=== PATIENT | female | born 1975 | race Caucasian/White ===

== ENCOUNTER 2016-10-18 06:22 | Emergency (ER) | payer OTHER ==
[~2016-10-18] VITALS: Ht 165.1 cm; Wt 99.8 kg
[~2016-10-18 06:22] MED LIST: DAPA10TA PO; INSU100V SQ; INSU300I SQ; LIRA0.6P SQ; LISI40TA PO; METF-478 PO; MULT-974 PO; PANT40TA2 PO; PANT40TA3 PO; SUCR1ORA5 PO
--- NOTE | 2016-10-18 07:16 | Diagnostic Imaging Report ---
INDICATION: Cough and congestion. TECHNIQUE: Single view chest 7:07 AM. CORRELATION STUDY: 09/21/2006 FINDINGS: The heart size, mediastinal configuration and pulmonary vascularity are within normal limits. The lungs are clear with no consolidating infiltrate. There is no significant effusion or pneumothorax. There is overall somewhat suboptimal depth of inspiration. IMPRESSION: 1. No radiographic evidence for acute abnormality of the chest. Dictated by: Dictated on workstation # [id number]
[2016-10-18 07:24] LABS: BASOPHILS # (AUTO) 0.1 10^3/uL (0.0-0.1); BASOPHILS % (AUTO) 1 % (0-10); EOSINOPHILS # (AUTO) 0.1 10^3/uL (0.0-0.3); EOSINOPHILS % (AUTO) 2 % (0-10); LYMPHOCYTES # (AUTO) 2.6 X 10^3 (1.0-4.0); LYMPHOCYTES % (AUTO) 44 % (12-44); MEAN CORPUSCULAR HEMOGLOBIN 31 PG (25-34); MEAN CORPUSCULAR HGB CONC 34 G/DL (32-36); MEAN CORPUSCULAR VOLUME 89 FL (80-99); MEAN PLATELET VOLUME 9.9 FL (7.4-10.4); MONOCYTES # (AUTO) 0.4 X 10^3 (0.0-1.0); MONOCYTES % (AUTO) 8 % (0-12); NEUTROPHILS # (AUTO) 2.7 X 10^3 (1.8-7.8); NEUTROPHILS % (AUTO) 46 % (42-75); PLATELET COUNT 253 10^3/uL (130-400); RED BLOOD COUNT 4.04 10^6/uL (4.35-5.85); RED CELL DISTRIBUTION WIDTH 12.7 % (10.0-14.5); WHITE BLOOD COUNT 5.9 10^3/uL (4.3-11.0)
--- NOTE | 2016-10-18 07:42 | ED Cough/URI ---
General Chief Complaint: Cough/Cold/Flu Symptoms Stated Complaint: UPPER RESPIRATORY INFECTION Nursing Triage Note: Pt. advises she has had an upper respiratory infection for approx. 1 weeks. She states she was seen at urgent care on wednesday and has since completed a z-pack without improvement. Source: patient Exam Limitations: no limitations History of Present Illness Time seen by provider: 07:39 Initial Comments The patient is a 40-year-old white female insulin requiring diabetic who reports with a complaint of a harsh barking cough for about one week now. She was seen in an intermediate care facility and given a Z-Andrew. She took all of this and has also used Flonase and Mucinex without results. She reports her worst time is at bedtime when she seems to increase her postnasal drainage and therefore coughing. She was unable to sleep last night because of this. 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 School ended on Wednesday. Timing/Duration: constant, week Severity/Quality: moderate, dry cough Allergies and Home Medications Allergies Coded Allergies: No Known Drug Allergies (Unverified , 12/29/15) Home Medications Dapagliflozin Propanediol 10 Mg Tablet, 10 MG PO DAILY, (Reported) Insulin Glargine,Hum.rec.anlog 300 Unit/1 Ml Insuln.pen, 40-50 UNIT SQ HS, ( Reported) Insulin Lispro 100 Unit/1 Ml Vial, 15 UNIT SQ AC, (Reported) Liraglutide 0.6 Mg/0.1 Ml Pen.injctr, 1.2 UNITS SQ DAILY, (Reported) Lisinopril 40 Mg Tablet, 40 MG PO DAILY, (Reported) Metformin HCl 500 Mg Tab.er.24, 500 MG PO, (Reported) Multivitamin 1 Each Tablet, 1 EACH PO, (Reported) Pantoprazole Sodium 40 Mg Tablet.dr, 40 MG PO PRN, (Reported) Pantoprazole Sodium 40 Mg Tablet.dr, 40 MG PO DAILY, #30 Prescribed by: WILFREDO ANDERSON on 12/29/15 1139 Sucralfate 1 Gm/10 Ml Oral.susp, 1 GM PO ACHS, #40 Prescribed by: WILFREDO ANDERSON on 12/29/15 1139 Constitutional: see HPI EENTM: hoarseness, nose congestion Respiratory: cough Cardiovascular: no symptoms reported Gastrointestinal: no symptoms reported Genitourinary: no symptoms reported Musculoskeletal: no symptoms reported Skin: no symptoms reported Psychiatric/Neurological: No Symptoms Reported Past Cqgloxx-Vaatwv-Wipwmr Hx Patient Social History Alcohol Use: Denies Use Recreational Drug Use: No Smoking Status: Never a Smoker Recent Foreign Travel: No Contact w/Someone Who Travel: No Recent Infectious Disease Expo: No Recent Hopitalizations: No Seasonal Allergies Seasonal Allergies: No Surgeries Surgeries: Gallbladder Respiratory Respiratory Disorders: Asthma Cardiovascular Cardiac Disorders: Hypertension Endocrine Endocrine Disorders: Diabetes, Insulin dep Physical Exam Vital Signs Vital Sign - Last 12Hours 10/18/16 06:35 Temp 97.3 Pulse 90 Resp 15 B/P (MAP) 124/71 Pulse Ox 98 O2 Delivery Room Air Capillary Refill : Less Than 3 Seconds General Appearance: other (she appears tired and is hoarse) Eyes: Bilateral Eye Normal Inspection HEENT: TMs normal, pharynx normal Neck: non-tender, full range of motion, supple, normal inspection, carotid bruit Respiratory: chest non-tender, lungs clear, normal breath sounds, no respiratory distress, no accessory muscle use, respiratory distress Cardiovascular: normal peripheral pulses, regular rate, rhythm, no edema, no gallop, no JVD, no murmur Gastrointestinal: normal bowel sounds, non tender, soft, no organomegaly, no pulsatile mass Extremities: normal range of motion, non-tender, normal inspection, no pedal edema, no calf tenderness, normal capillary refill, pelvis stable Skin: normal color, warm/dry, cyanosis, cool, diaphoresis, damp Lymphatic: no adenopathy Progress/Results/Core Measures Results/Orders Lab Results Laboratory Tests Test 10/18/16 07:15 Range/Units White Blood Count 5.9 4.3-11.0 10^3/uL Red Blood Count 4.04 L 4.35-5.85 10^6/uL Hemoglobin 12.4 11.5-16.0 G/DL Hematocrit 36 35-52 % Mean Corpuscular Volume 89 80-99 FL Mean Corpuscular Hemoglobin 31 25-34 PG Mean Corpuscular Hemoglobin Concent 34 32-36 G/DL Red Cell Distribution Width 12.7 10.0-14.5 % Platelet Count 253 130-400 10^3/uL Mean Platelet Volume 9.9 7.4-10.4 FL Neutrophils (%) (Auto) 46 42-75 % Lymphocytes (%) (Auto) 44 12-44 % Monocytes (%) (Auto) 8 0-12 % Eosinophils (%) (Auto) 2 0-10 % Basophils (%) (Auto) 1 0-10 % Neutrophils # (Auto) 2.7 1.8-7.8 X 10^3 Lymphocytes # (Auto) 2.6 1.0-4.0 X 10^3 Monocytes # (Auto) 0.4 0.0-1.0 X 10^3 Eosinophils # (Auto) 0.1 0.0-0.3 10^3/uL Basophils # (Auto) 0.1 0.0-0.1 10^3/uL Sodium Level 138 135-145 MMOL/L Potassium Level 4.1 3.6-5.0 MMOL/L Chloride Level 105 98-107 MMOL/L Carbon Dioxide Level 22 21-32 MMOL/L Anion Gap 11 5-14 MMOL/L Blood Urea Nitrogen 13 7-18 MG/DL Creatinine 0.75 0.60-1.30 MG/DL Estimat Glomerular Filtration Rate > 60 BUN/Creatinine Ratio 17 Glucose Level 228 H 70-105 MG/DL Calcium Level 9.0 8.5-10.1 MG/DL Total Bilirubin 0.7 0.1-1.0 MG/DL Aspartate Amino Transf (AST/SGOT) 13 5-34 U/L Alanine Aminotransferase (ALT/SGPT) 16 0-55 U/L Alkaline Phosphatase 125 40-136 U/L Total Protein 7.4 6.4-8.2 G/DL Albumin 4.2 3.2-4.5 G/DL My Orders Orders - PARESH KAY MD Cbc With Automated Diff (10/18/16 06:51) Comprehensive Metabolic Panel (10/18/16 06:51) Chest 1 View, Ap/Pa Only (10/18/16 07:01) Vital Signs/I&O Vital Sign - Last 12Hours 10/18/16 10/18/16 06:35 06:35 Temp 97.3 Pulse 90 Resp 15 B/P (MAP) 124/71 Pulse Ox 98 O2 Delivery Room Air Room Air Blood Pressure Mean: 88 Departure Communication Progress Notes Workup including chest x-ray and CBC and chem panel were normal with the exception of a somewhat elevated blood sugar. Impression Impression: Primary Impression: viral upper respiratory infection Disposition: 01 HOME, SELF-CARE Condition: Stable/Unchanged Departure-Patient Inst. Decision time for Depature: :56 Referrals: NO,LOCAL PHYSICIAN (PCP) Primary Care Physician Patient Instructions: Cough, Adult (DC) Add. Discharge Instructions: All discharge instructions reviewed with patient and/or family. Voiced understanding. Continue your present measures. Tylenol 3 has been provided for cough suppression Scripts Codeine Sulfate (Codeine Sulfate) 30 Mg Tab 30 MG PO every 4 hours Y for cough, #25 TAB Prov: PARESH KAY MD 10/18/16 PARESH KAY MD October 18, 2016 07:42
[2016-10-18 07:43] LABS: ALANINE AMINOTRANSFERASE 16 U/L (0-55); ALBUMIN 4.2 G/DL (3.2-4.5); ANION GAP 11 MMOL/L (5-14); ASPARTATE AMINO TRANSFERASE 13 U/L (5-34); BILIRUBIN,TOTAL 0.7 MG/DL (0.1-1.0); BLOOD UREA NITROGEN 13 MG/DL (7-18); BUN/CREATININE RATIO 17; CARBON DIOXIDE 22 MMOL/L (21-32); CHLORIDE 105 MMOL/L (98-107); CREATININE SERUM 0.75 MG/DL (0.60-1.30); GFR ESTIMATED > 60; GLUCOSE 228 MG/DL (70-105); POTASSIUM 4.1 MMOL/L (3.6-5.0); SODIUM 138 MMOL/L (135-145); TOTAL PROTEIN 7.4 G/DL (6.4-8.2)
[2016-10-18] MEDS ORDERED: [UNRECOGNIZED DRUG - CODE] PO (07:58)
[2016-10-18 08:01] VITALS: BP 124/71
== END 2016-10-18 08:01 | disposition home or self-care (01) ==
LOC: EDUNIT# 06:22 → ER 06:26
DX: J06.9 Acute upper respiratory infection, unspecified (principal); E11.9 Type 2 diabetes mellitus without complications; I10 Essential (primary) hypertension; F17.210 Nicotine dependence, cigarettes, uncomplicated; Z79.84 Long term (current) use of oral hypoglycemic drugs; Z79.4 Long term (current) use of insulin; Z79.899 Other long term (current) drug therapy
CPT/HCPCS: 36415; 71010; 80053; 85025; 99282

== ENCOUNTER 2019-03-31 14:25 | Emergency (ER) | payer OTHER ==
[~2019-03-31] VITALS: Ht 157 cm; Wt 75.0 kg
[~2019-03-31 14:25] MED LIST changes: +[UNRECOGNIZED DRUG - CODE] PO
[2019-03-31] MEDS ORDERED: LACTATED RINGERS 1,000 ML IV STA (14:54)
[2019-03-31] MEDS ORDERED: ONDANSETRON 4 MG/2 ML (SDV) Z0FRAN IVP ONE (15:00)
[2019-03-31 15:02] LABS: BASOPHILS % (AUTO) 0 % (0-10); EOSINOPHILS % (AUTO) 0 % (0-10); HEMATOCRIT 35 % (35-52); HEMOGLOBIN 11.8 G/DL (11.5-16.0); LYMPHOCYTES # (AUTO) 0.7 X 10^3 (1.0-4.0); LYMPHOCYTES % (AUTO) 7 % (12-44); MEAN CORPUSCULAR HEMOGLOBIN 30 PG (25-34); MEAN CORPUSCULAR HGB CONC 34 G/DL (32-36); MEAN CORPUSCULAR VOLUME 90 FL (80-99); MEAN PLATELET VOLUME 10.5 FL (7.4-10.4); MONOCYTES # (AUTO) 0.7 X 10^3 (0.0-1.0); MONOCYTES % (AUTO) 7 % (0-12); NEUTROPHILS # (AUTO) 8.2 X 10^3 (1.8-7.8); NEUTROPHILS % (AUTO) 86 % (42-75); PLATELET COUNT 231 10^3/uL (130-400); RED CELL DISTRIBUTION WIDTH 13.4 % (10.0-14.5); WHITE BLOOD COUNT 9.6 10^3/uL (4.3-11.0)
[2019-03-31 15:19] LABS: ALANINE AMINOTRANSFERASE 24 U/L (0-55); ALKALINE PHOSPHATASE 137 U/L (40-136); BILIRUBIN,TOTAL 4.6 MG/DL (0.1-1.0); BUN/CREATININE RATIO 17; CALCIUM 9.1 MG/DL (8.5-10.1); CARBON DIOXIDE 20 MMOL/L (21-32); CHLORIDE 97 MMOL/L (98-107); CREATININE SERUM 0.93 MG/DL (0.60-1.30); GFR ESTIMATED > 60; GLUCOSE 350 MG/DL (70-105); POTASSIUM 3.7 MMOL/L (3.6-5.0); SODIUM 134 MMOL/L (135-145); TOTAL PROTEIN 7.1 GM/DL (6.4-8.2)
--- NOTE | 2019-03-31 15:44 | ED Abdominal Pain ---
General Chief Complaint: Abdominal/GI Problems Stated Complaint: NAUSEATED Nursing Triage Note: PT STATES SINCE LAST NIGHT SHE HAS BEEN VOMTTING AND DIARRHEA, STATES RECIEVED PHENERGAN SHOT FROM CLINIC YESTERDAY EVENING. Sepsis Screen: No Definite Risk Source of Information: Patient Exam Limitations: No Limitations History of Present Illness Date Seen by Provider: Mar 31, 2019 Time Seen by Provider: 14:44 Initial Comments Here with report of nausea, vomiting and diarrhea that started last night after eating. She hasn't been feeling well this week with report of persistent cough. She is a diabetic. Was seen in the clinic yesterday evening and given Phenergan shot which helped her nausea and vomiting and prescribed medicines. She has been unable to really keep anything down throughout the day. Denies dysuria. Does have fever. Timing/Duration: 2-3 Days, Getting Worse Severity/Quality: Moderate, Cramping Location: Generalized Abdomen Radiation: No Radiation Activities at Onset: None Modifying Factors: Worsens With Eating; Improves With Resting Associated Symptoms: No Back Pain, No Chest Pain; Fever/Chills, Fatigue, Nausea/Vomiting; No Swelling/Mass in Abdomen; Weakness Allergies and Home Medications Allergies Coded Allergies: No Known Drug Allergies (Unverified , 12/29/15) Home Medications Codeine Sulfate 30 Mg Tab, 30 MG PO every 4 hours PRN for cough Prescribed by: PARESH KAY on 10/18/16 0758 Dapagliflozin Propanediol 10 Mg Tablet, 10 MG PO DAILY, (Reported) Insulin Glargine,Hum.rec.anlog 300 Unit/1 Ml Insuln.pen, 40-50 UNIT SQ HS, (Reported) Insulin Lispro 100 Unit/1 Ml Vial, 15 UNIT SQ AC, (Reported) Liraglutide 0.6 Mg/0.1 Ml Pen.injctr, 1.2 UNITS SQ DAILY, (Reported) Lisinopril 40 Mg Tablet, 40 MG PO DAILY, (Reported) Pantoprazole Sodium 40 Mg Tablet.dr, 40 MG PO PRN, (Reported) Pantoprazole Sodium 40 Mg Tablet.dr, 40 MG PO DAILY Prescribed by: WILFREDO ANDERSON on 12/29/15 1139 Sucralfate 1 Gm/10 Ml Oral.susp, 1 GM PO ACHS Prescribed by: WILFREDO ANDERSON on 12/29/15 1139 Patient Home Medication List Home Medication List Reviewed: Yes Review of Systems Review of Systems Constitutional: see HPI, chills, fever, malaise, weakness EENTM: No Symptoms Reported Respiratory: Cough; Denies Shortness of Air; Wheezing Cardiovascular: No Symptoms Reported Gastrointestinal: Abdominal Pain, Diarrhea, Nausea, Vomiting Genitourinary: No Symptoms Reported Musculoskeletal: No joint pain; muscle pain Skin: no symptoms reported Psychiatric/Neurological: No Symptoms Reported All Other Systems Reviewed Negative Unless Noted: Yes Past Fcdomta-Pjokmw-Sbdrzy Hx Past Med/Social Hx: Reviewed Nursing Past Med/Soc Hx Patient Social History Alcohol Use: Denies Use Recreational Drug Use: No Smoking Status: Never a Smoker Recent Foreign Travel: No Contact w/Someone Who Travel: No Recent Infectious Disease Expo: No Recent Hopitalizations: No Seasonal Allergies Seasonal Allergies: No Past Medical History Surgeries: Yes Gallbladder Respiratory: Yes Asthma Cardiac: Yes Hypertension Neurological: No Genitourinary: No Gastrointestinal: No Musculoskeletal: No Endocrine: Yes Diabetes, Insulin dep HEENT: No Cancer: No Psychosocial: No Integumentary: No Blood Disorders: No Family Medical History Reviewed Nursing Family Hx Physical Exam Vital Signs Vital Signs - First Documented 03/31/19 14:32 Temp 38.4 Pulse 134 Resp 18 B/P (MAP) 111/67 (82) Pulse Ox 93 O2 Delivery Room Air Capillary Refill : Less Than 3 Seconds Height/Weight/BMI Height: 5'5.00" Weight: 220lbs. oz. 99.865809bj; 30.00 BMI Method:Stated General Appearance: WD/WN, mild distress HEENT: PERRL/EOMI, TMs normal, pharynx normal Neck: full range of motion, supple Respiratory: lungs clear, normal breath sounds Cardiovascular: no murmur, tachycardia Peripheral Pulses: 2+ Dorsalis Pedis (R), 2+ Left Dors-Pedis (L), 2+ Radial Pulses (R), 2+ Radial Pulses (L) Gastrointestinal: soft, tenderness (mild lower) Extremities: non-tender, normal inspection Back: normal inspection, no CVA tenderness, no vertebral tenderness Neurologic/Psychiatric: alert, normal mood/affect, oriented x 3 Skin: normal color, warm/dry Progress/Results/Core Measures Results/Orders Lab Results Laboratory Tests Test 03/31/19 14:44 03/31/19 16:06 Range/Units White Blood Count 9.6 4.3-11.0 10^3/uL Red Blood Count 3.90 L 4.35-5.85 10^6/uL Hemoglobin 11.8 11.5-16.0 G/DL Hematocrit 35 35-52 % Mean Corpuscular Volume 90 80-99 FL Mean Corpuscular Hemoglobin 30 25-34 PG Mean Corpuscular Hemoglobin Concent 34 32-36 G/DL Red Cell Distribution Width 13.4 10.0-14.5 % Platelet Count 231 130-400 10^3/uL Mean Platelet Volume 10.5 H 7.4-10.4 FL Neutrophils (%) (Auto) 86 H 42-75 % Lymphocytes (%) (Auto) 7 L 12-44 % Monocytes (%) (Auto) 7 0-12 % Eosinophils (%) (Auto) 0 0-10 % Basophils (%) (Auto) 0 0-10 % Neutrophils # (Auto) 8.2 H 1.8-7.8 X 10^3 Lymphocytes # (Auto) 0.7 L 1.0-4.0 X 10^3 Monocytes # (Auto) 0.7 0.0-1.0 X 10^3 Eosinophils # (Auto) 0.0 0.0-0.3 10^3/uL Basophils # (Auto) 0.0 0.0-0.1 10^3/uL Neutrophils % (Manual) 58 % Lymphocytes % (Manual) 6 % Monocytes % (Manual) 5 % Metamyelocytes % 1 % Band Neutrophils 29 % Nucleated Red Blood Cells 1 Polychromasia SLIGHT Poikilocytosis SLIGHT Spherocytes SLIGHT Sodium Level 134 L 135-145 MMOL/L Potassium Level 3.7 3.6-5.0 MMOL/L Chloride Level 97 L 98-107 MMOL/L Carbon Dioxide Level 20 L 21-32 MMOL/L Anion Gap 17 H 5-14 MMOL/L Blood Urea Nitrogen 16 7-18 MG/DL Creatinine 0.93 0.60-1.30 MG/DL Estimat Glomerular Filtration Rate > 60 BUN/Creatinine Ratio 17 Glucose Level 350 H 70-105 MG/DL Calcium Level 9.1 8.5-10.1 MG/DL Corrected Calcium 9.1 8.5-10.1 MG/DL Total Bilirubin 4.6 H 0.1-1.0 MG/DL Aspartate Amino Transf (AST/SGOT) 24 5-34 U/L Alanine Aminotransferase (ALT/SGPT) 24 0-55 U/L Alkaline Phosphatase 137 H 40-136 U/L Total Protein 7.1 6.4-8.2 GM/DL Albumin 4.0 3.2-4.5 GM/DL Urine Color DARK YELLOW Urine Clarity CLEAR Urine pH 5 5-9 Urine Specific [place] 1.020 1.016-1.022 Urine Protein 2+ H NEGATIVE Urine Glucose (UA) 4+ H NEGATIVE Urine Ketones 3+ H NEGATIVE Urine Nitrite NEGATIVE NEGATIVE Urine Bilirubin NEGATIVE NEGATIVE Urine Urobilinogen NORMAL NORMAL MG/DL Urine Leukocyte Esterase NEGATIVE NEGATIVE Urine RBC (Auto) NEGATIVE NEGATIVE Urine RBC NONE /HPF Urine WBC NONE /HPF Urine Squamous Epithelial Cells NONE /HPF Urine Crystals NONE /LPF Urine Bacteria NEGATIVE /HPF Urine Casts PRESENT /LPF Urine Hyaline Casts 10-25 H /LPF Urine Mucus SMALL H /LPF Urine Yeast FEW H /HPF Urine Culture Indicated NO My Orders Orders - DEEPTHI BHAKTA MD Cbc With Automated Diff (03/31/19 14:54) Comprehensive Metabolic Panel (03/31/19 14:54) Ua Culture If Indicated (03/31/19 14:54) Ondansetron Injection (Zofran Injectio (03/31/19 15:00) Lactated Ringers (Lr 1000 Ml Iv Solution (03/31/19 14:54) Ed Iv/Invasive Line Start (03/31/19 14:54) Chest Pa/Lat (2 View) (03/31/19 14:54) Manual Differential (03/31/19 14:44) Albuterol/Ipra Inhalation Soln (Duoneb I (03/31/19 16:15) Ceftriaxone For Iv Use (Rocephin For I (03/31/19 16:15) Svn Small Volume Nebulizer (03/31/19 16:15) Medications Given in ED Current Medications Medications Dose Ordered Sig/Jovana Route Start Time Stop Time Status Last Admin Dose Admin Ceftriaxone Sodium 1000 mg/ Sterile Water 10 ml @ 200 mls/hr ONCE ONCE IV 03/31/19 16:15 03/31/19 16:17 DC 03/31/19 16:31 200 MLS/HR Ondansetron HCl 4 mg ONCE ONCE IVP 03/31/19 15:00 03/31/19 15:01 DC 03/31/19 15:20 4 MG Vital Signs/I&O 03/31/19 14:32 Temp 38.4 Pulse 134 Resp 18 B/P (MAP) 111/67 (82) Pulse Ox 93 O2 Delivery Room Air Blood Pressure Mean: 82 POS Progress Progress Note : Progress Note Seen and evaluated. IV, labs, UA, Zofran 4 mg IV and LR 1 L bolus ordered. Monitor patient. 1635: Pneumonia noted left lower lobe. Initially considered admission but after discussion with the patient, she would like to try outpatient treatment. She is drinking water now without difficulty. I think it is reasonable to try to treat outpatient but if she worsens she will need admission. This was discussed with the patient who agrees. We will give Rocephin 1 g IV now and continue outpatient cefdinir in addition to the azithromycin that she is currently on. We will also give prescription for cough medicine. Discharged home with return precautions. Patient verbalize understanding of instructions and agreement with plan. Diagnostic Imaging Diagonstic Imaging: Xray Plain Films/CT/US/NM/MRI: chest Comments NAME: [facility] REC#: [id number] PT STATUS: REG ER : 1975 PHYSICIAN: DEEPTHI BHAKTA MD ADMIT DATE: 03/31/19/ER Signed POSDate of Exam: 03/31/19 CHEST PA/LAT (2 VIEW) INDICATION: Bronchitis, nausea and vomiting, and cough. PA and lateral chest obtained at 03:32 p.m. and compared to 10/18/2016. Heart is normal in size. Mediastinal silhouette is unremarkable. There is no pneumothorax or pleural fluid. There is alveolar infiltrate in the left lower lobe posteriorly suspicious for pneumonia. IMPRESSION: Left lower lobe infiltrate suspicious for pneumonia. No pneumothorax or pleural fluid. Dictated by: Dictated on workstation # [id number] Dict: 03/31/19 1536 Trans: 03/31/19 1546 Interpreted by: FRANK AVILEZ MD Electronically signed by: FRANK AVILEZ MD 03/31/19 1546 Departure Impression Primary Impression: Left lower lobe pneumonia Qualified Codes: J18.1 - Lobar pneumonia, unspecified organism Disposition: HOME, SELF-CARE Condition: Stable Departure-Patient Inst. Decision time for Depature: 16:45 Referrals: NO,LOCAL PHYSICIAN (PCP/Family) Primary Care Physician Patient Instructions: Pneumonia, Adult (DC) Add. Discharge Instructions: All discharge instructions reviewed with patient and/or family. Voiced understanding. Take medications as directed. You will start the cefdinir in the morning. Take cough medicine as directed. You may take the other nausea medicine as needed as well per prescription. Drink plenty of fluids. You should check your blood sugars several times daily and adjust as needed. Continue home breathing treatments as needed. Return for worse pain, fever, vomiting, weakness, breathing problems or other concerns as needed. Do not take the prescribed promethazine (Phenergan) that you received from the clinic with your cough medicine as they both have promethazine in them. You may take the ondansetron that was prescribed for nausea with the cough medicine. Scripts Ondansetron (Ondansetron Odt) 4 Mg Tab.rapdis 4 MG PO Q6H PRN for NAUSEA/VOMITING, #8 TAB 0 Refills Prov: DEEPTHI BHAKTA MD 03/31/19 Cefdinir (Cefdinir) 300 Mg Capsule 300 MG PO BID, #14 CAP 0 Refills Prov: DEEPTHI BHAKTA MD 03/31/19 Promethazine HCl/Codeine (Prometh-Codein 6.25-10 mg/5 ml) 5 Ml Syrup 5 ML PO Q6H, #60 ML 0 Refills Prov: DEEPTHI BHAKTA MD 03/31/19 Copy Copies To 1: LALA PAYNE TIMOTHY D MD Mar 31, 2019 15:44 POS
[2019-03-31 15:45] LABS: BAND NEUTROPHILS 29 %; LYMPHOCYTES % (MANUAL) 6 %; METAMYELOCYTES % 1 %; MONOCYTES % (MANUAL) 5 %; NEUTROPHILS % (MANUAL) 58 %; NUCLEATED RED BLOOD CELLS 1; POIKILOCYTOSIS SLIGHT; POLYCHROMASIA SLIGHT; SPHEROCYTES SLIGHT
[2019-03-31 16:13] LABS: BILIRUBIN,URINE NEGATIVE (NEGATIVE); CLARITY,URINE CLEAR; GLUCOSE, URINE (UA) 4+ (NEGATIVE); KETONES,URINE 3+ (NEGATIVE); LEUKOCYTE ESTERASE ,URINE NEGATIVE (NEGATIVE); NITRITE,URINE NEGATIVE (NEGATIVE); PH,URINE 5 (5-9); PROTEIN,URINE 2+ (NEGATIVE)
[2019-03-31] MEDS ORDERED: RT-ALBUTEROL/IPRATROPIUM 3 ML (DUONEB) VIAL INH ONE (16:15)
[2019-03-31] MEDS ORDERED: cefTRIAXone FOR IV USE 1,000 MG in WATER (STERILE) FOR INJECTION 10 ML IV ONE (16:15)
[2019-03-31 16:24] LABS: BACTERIA,URINE NEGATIVE /HPF; COLOR,URINE DARK YELLOW
[2019-03-31 16:25] LABS: YEAST,URINE FEW /HPF
[2019-03-31] MEDS ORDERED: ONDA4TAB11 PO (16:50)
[2019-03-31] MEDS ORDERED: CEFD300C3 PO (16:50)
[2019-03-31] MEDS ORDERED: PROM5SYR PO (16:50)
[2019-03-31 17:00] VITALS: BP 111/67
--- OUTSIDE RECORDS SUMMARY | 2019-04-24 11:58 | XMS REPORT | Continuity of Care Document ---
Author Organization Unknown POS Address Unknown SP Phone Unavailable SP Allergies Active Description Code Type Severity POS Reaction Onset Reported/Identified POS to Patient Clinical Status POS Yes No Known Drug Allergies [id number] Drug SP Unknown N/A 12/29/2015 SP SP Medications There is no data. Problems Date Dx Coded Attending Type Code POS Diagnosed By POS 06/10/2013 LIVIA LUNSFORD, DEEPTHI Judd Ot 789.00 SP ABDOMINAL PAIN, UNSPECIFIED SITE SP 12/29/2015 WILFREDO ANDERSON APRN Ot E11.69 SP TYPE 2 DIABETES MELLITUS WITH OTHER SPEC SP 12/29/2015 WILFREDO ANDERSON APRN Ot K27 .9 SP ULC, SITE UNSP, UNSP AC OR CHR SP 12/29/2015 WILFREDO ANDERSON STUDY ABROAD COORDINATOR Ot K58 .9 SP BOWEL SYNDROME WITHOUT DIARRHE SP 12/29/2015 WILFREDO ANDERSON APRN Ot R10.12 SP LEFT UPPER QUADRANT PAIN SP 12/29/2015 WILFREDO ANDERSON APRN Ot R10.32 SP LEFT LOWER QUADRANT PAIN SP 12/29/2015 WILFREDO ANDERSON APRN Ot Z79 .4 SP TERM (CURRENT) USE OF INSULIN SP 10/18/2016 PARESH KAY MD Ot E11 .9 SP 2 DIABETES MELLITUS WITHOUT COMPLIC SP 10/18/2016 PARESH KAY MD Ot F17.210 SP NICOTINE DEPENDENCE, CIGARETTES, UNCOMPL SP 10/18/2016 PARESH KAY MD Ot I10 SP (PRIMARY) HYPERTENSION SP 10/18/2016 PARESH KAY MD Ot J06 .9 SP UPPER RESPIRATORY INFECTION, UNSPE SP 10/18/2016 PARESH KAY MD Ot Z79 .4 SP TERM (CURRENT) USE OF INSULIN SP 10/18/2016 PARESH KAY MD Ot Z79.84 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 SP 10/18/2016 PARESH KAY MD Ot Z79.899 SP OTHER CARE HOME (CURRENT) DRUG THERAPY SP 10/20/2016 PARESH KAY MD Ot E11 .9 SP 2 DIABETES MELLITUS WITHOUT COMPLIC SP 10/20/2016 PARESH KAY MD Ot F17.210 SP NICOTINE DEPENDENCE, CIGARETTES, UNCOMPL SP 10/20/2016 PARESH KAY MD Ot I10 SP (PRIMARY) HYPERTENSION SP 10/20/2016 PARESH KAY MD Ot J06 .9 SP UPPER RESPIRATORY INFECTION, UNSPE SP 10/20/2016 PARESH KAY MD Ot Z79 .4 SP TERM (CURRENT) USE OF INSULIN SP 10/20/2016 PARESH KAY MD Ot Z79.84 SP CARE HOME (CURRENT) USE OF ORAL HYPOGLYC SP 10/20/2016 PARESH KAY MD Ot Z79.899 SP OTHER CARE HOME (CURRENT) DRUG THERAPY SP 11/05/2016 PARESH KAY MD Ot E11 .9 SP 2 DIABETES MELLITUS WITHOUT COMPLIC SP 11/05/2016 PARESH KAY MD Ot F17.210 SP NICOTINE DEPENDENCE, CIGARETTES, UNCOMPL SP 11/05/2016 PARESH KAY MD Ot I10 SP (PRIMARY) HYPERTENSION SP 11/05/2016 PARESH KAY MD Ot J06 .9 SP UPPER RESPIRATORY INFECTION, UNSPE SP 11/05/2016 PARESH KAY MD Ot Z79 .4 SP TERM (CURRENT) USE OF INSULIN SP 11/05/2016 PARESH KAY MD Ot Z79.84 SP CARE HOME (CURRENT) USE OF ORAL HYPOGLYC SP 11/05/2016 PARESH KAY MD Ot Z79.899 SP OTHER CARE HOME (CURRENT) DRUG THERAPY SP 04/06/2019 WILFREDO ANDERSON STUDY ABROAD COORDINATOR Ot E11 .9 SP 2 DIABETES MELLITUS WITHOUT COMPLIC SP 04/06/2019 WILFREDO ANDERSON STUDY ABROAD COORDINATOR Ot I10 SP (PRIMARY) HYPERTENSION SP 04/06/2019 WILFREDO ANDERSON APRN Ot J18 .1 SP PNEUMONIA, UNSPECIFIED ORGANISM SP 04/06/2019 WILFREDO ANDERSON APRN Ot J45.909 SP UNSPECIFIED ASTHMA, UNCOMPLICATED SP 04/06/2019 WILFREDO ANDERSON STUDY ABROAD COORDINATOR Ot R05 SP SP 04/06/2019 WILFREDO ANDERSON APRN Ot Z79 .4 SP TERM (CURRENT) USE OF INSULIN SP Procedures There is no data. Results Test Result Range POS Complete urinalysis with reflex to cultu re - 12/29/15 10:55 POS Urine color determination YELLOW NRG SP Urine clarity determination CLEAR NR G SP Urine pH measurement by test strip 5 5-9 SP Specific gravity of urine by test strip 1.020 1.016-1.022 SP Urine protein assay by test strip, semi-quantitative 1+ SP Urine glucose detection by automated test strip 4+ NEGATIVE SP Erythrocytes detection in urine sediment by light micr oscopy 2+ SP NEGATIVE SP Urine ketones detection by automated test strip 1+ NEGATIVE SP Urine nitrite detection by test strip NEGATIVE NEGATIVE SP Urine total bilirubin detection by test strip NEGA TIVE SP Urine urobilinogen measurement by automated test strip (mass/volume) SP NORMAL SP Urine leukocyte esterase detection by dipstick NEG ATIVE SP Automated urine sediment erythrocyte cou nt by microscopy (number/high power SP NONE NRG SP Automated urine sediment leukocyte count by microscopy (number/high power field) SP [HPF] NRG SP Bacteria detection in urine sediment by light microsco py FEW SP NRG SP Squamous epithelial cells detection in u rine sediment by light microscopy SP 2-5 NRG SP Crystals detection in urine sediment by light microsco py NONE SP NRG SP Casts detection in urine sediment by light microscopy NONE SP Mucus detection in urine sediment by light microscopy NEGATIVE SP NRG SP Complete urinalysis with reflex to culture NO NRG SP Complete blood count (CBC) with automate d white blood cell (WBC) differential - POS 11:03 Blood leukocytes automated count (number/volume) 7.0 10*3/uL POS 4.3-11.0 SP Blood erythrocytes automated count (number/volume) 4.47 10*6/uL SP 4.35-5.85 SP Venous blood hemoglobin measurement (mass/volume) 13.9 g/dL SP16.0 Blood hematocrit (volume fraction) 40 % 35-52 SP Automated erythrocyte mean corpuscular volume 89 [ foz_us] SP99 Automated erythrocyte mean corpuscular h emoglobin (mass per erythrocyte) SP 31 pg 25-34 SP Automated erythrocyte mean corpuscular h emoglobin concentration measurement SP 35 g/dL 32-36 SP Automated erythrocyte distribution width ratio 12. 9 % 10.0- SP Automated blood platelet count (count/volume) 265 10*3/uL SP400 Automated blood platelet mean volume measurement 10.1 [foz_us] SP 7.4-10.4 SP Automated blood neutrophils/100 leukocytes 47 % 42-75 SP Automated blood lymphocytes/100 leukocytes 44 % 12-44 SP Blood monocytes/100 leukocytes 8 % 0-12 SP Automated blood eosinophils/100 leukocytes 1 % 0-10 SP Automated blood basophils/100 leukocytes 0 % 0-10 SP Blood neutrophils automated count (number/volume) 3.3 10*3 SP7.8 Blood lymphocytes automated count (number/volume) 3.0 10*3 SP4.0 Blood monocytes automated count (number/volume) 0. 5 10*3 SP1.0 Automated eosinophil count 0.1 10*3/uL 0 .0-0.3 SP Automated blood basophil count (count/volume) 0.0 10*3/uL SP0.1 Comprehensive metabolic panel - 12/29/15 11:03 POS Serum or plasma sodium measurement (moles/volume) 136 mmol/L SP 135-145 SP Serum or plasma potassium measurement (moles/volume) 4.4 mmol/L SP 3.6-5.0 SP Serum or plasma chloride measurement (moles/volume) 105 mmol/L SP 98-107 SP Carbon dioxide 18 mmol/L 21-32 SP Serum or plasma anion gap determination (moles/volume) 13 mmol/L SP 5-14 SP Serum or plasma urea nitrogen measurement (mass/volume ) 15 mg/dL SP 7-18 SP Serum or plasma creatinine measurement (mass/volume) 0.76 mg/dL SP 0.60-1.30 SP Serum or plasma urea nitrogen/creatinine mass ratio 20 NRG SP Serum or plasma creatinine measurement w ith calculation of estimated glomerular SP rate > NRG SP Serum or plasma glucose measurement (mass/volume) 268 mg/dL SP105 Serum or plasma calcium measurement (mass/volume) 9.6 mg/dL SP10.1 Serum or plasma total bilirubin measurement (mass/volu me) 1.2 mg/dL SP 0.1-1.0 SP Serum or plasma alkaline phosphatase kristi surement (enzymatic activity/volume) SP 96 U/L 40-136 SP Serum or plasma aspartate aminotransfera se measurement (enzymatic SP 18 U/L 5-34 SP Serum or plasma alanine aminotransferase measurement (enzymatic activity/volume) SP 27 U/L 0-55 SP Serum or plasma protein measurement (mass/volume) 7.6 g/dL SP8.2 Serum or plasma albumin measurement (mass/volume) 4.6 g/dL SP4.5 Lipase - 12/29/15 11:03 POS Lipase 34 U/L 8-78 SP Complete blood count (CBC) with automate d white blood cell (WBC) differential - POS 07:15 Blood leukocytes automated count (number/volume) 5.9 10*3/uL POS 4.3-11.0 SP Blood erythrocytes automated count (number/volume) 4.04 10*6/uL SP 4.35-5.85 SP Venous blood hemoglobin measurement (mass/volume) 12.4 g/dL SP16.0 Blood hematocrit (volume fraction) 36 % 35-52 SP Automated erythrocyte mean corpuscular volume 89 [ foz_us] SP99 Automated erythrocyte mean corpuscular h emoglobin (mass per erythrocyte) SP 31 pg 25-34 SP Automated erythrocyte mean corpuscular h emoglobin concentration measurement SP 34 g/dL 32-36 SP Automated erythrocyte distribution width ratio 12. 7 % 10.0- SP Automated blood platelet count (count/volume) 253 10*3/uL SP400 Automated blood platelet mean volume measurement 9.9 [foz_us] SP 7.4-10.4 SP Automated blood neutrophils/100 leukocytes 46 % 42-75 SP Automated blood lymphocytes/100 leukocytes 44 % 12-44 SP Blood monocytes/100 leukocytes 8 % 0-12 SP Automated blood eosinophils/100 leukocytes 2 % 0-10 SP Automated blood basophils/100 leukocytes 1 % 0-10 SP Blood neutrophils automated count (number/volume) 2.7 10*3 SP7.8 Blood lymphocytes automated count (number/volume) 2.6 10*3 SP4.0 Blood monocytes automated count (number/volume) 0. 4 10*3 SP1.0 Automated eosinophil count 0.1 10*3/uL 0 .0-0.3 SP Automated blood basophil count (count/volume) 0.1 10*3/uL SP0.1 Comprehensive metabolic panel - 10/18/16 07:15 POS Serum or plasma sodium measurement (moles/volume) 138 mmol/L SP 135-145 SP Serum or plasma potassium measurement (moles/volume) 4.1 mmol/L SP 3.6-5.0 SP Serum or plasma chloride measurement (moles/volume) 105 mmol/L SP 98-107 SP Carbon dioxide 22 mmol/L 21-32 SP Serum or plasma anion gap determination (moles/volume) 11 mmol/L SP 5-14 SP Serum or plasma urea nitrogen measurement (mass/volume ) 13 mg/dL SP 7-18 SP Serum or plasma creatinine measurement (mass/volume) 0.75 mg/dL SP 0.60-1.30 SP Serum or plasma urea nitrogen/creatinine mass ratio 17 NRG SP Serum or plasma creatinine measurement w ith calculation of estimated glomerular SP rate > NRG SP Serum or plasma glucose measurement (mass/volume) 228 mg/dL SP105 Serum or plasma calcium measurement (mass/volume) 9.0 mg/dL SP10.1 Serum or plasma total bilirubin measurement (mass/volu me) 0.7 mg/dL SP 0.1-1.0 SP Serum or plasma alkaline phosphatase kristi surement (enzymatic activity/volume) SP 125 U/L 40-136 SP Serum or plasma aspartate aminotransfera se measurement (enzymatic SP 13 U/L 5-34 SP Serum or plasma alanine aminotransferase measurement (enzymatic activity/volume) SP 16 U/L 0-55 SP Serum or plasma protein measurement (mass/volume) 7.4 g/dL SP8.2 Serum or plasma albumin measurement (mass/volume) 4.2 g/dL SP4.5 Complete blood count (CBC) with automate d white blood cell (WBC) differential - POS 14:44 Blood leukocytes automated count (number/volume) 9.6 10*3/uL POS 4.3-11.0 SP Blood erythrocytes automated count (number/volume) 3.90 10*6/uL SP 4.35-5.85 SP Venous blood hemoglobin measurement (mass/volume) 11.8 g/dL SP16.0 Blood hematocrit (volume fraction) 35 % 35-52 SP Automated erythrocyte mean corpuscular volume 90 [ foz_us] SP99 Automated erythrocyte mean corpuscular h emoglobin (mass per erythrocyte) SP 30 pg 25-34 SP Automated erythrocyte mean corpuscular h emoglobin concentration measurement SP 34 g/dL 32-36 SP Automated erythrocyte distribution width ratio 13. 4 % 10.0- SP Automated blood platelet count (count/volume) 231 10*3/uL SP400 Automated blood platelet mean volume measurement 10.5 [foz_us] SP 7.4-10.4 SP Automated blood neutrophils/100 leukocytes 86 % 42-75 SP Automated blood lymphocytes/100 leukocytes 7 % 12-44 SP Blood monocytes/100 leukocytes 7 % 0-12 SP Automated blood eosinophils/100 leukocytes 0 % 0-10 SP Automated blood basophils/100 leukocytes 0 % 0-10 SP Blood neutrophils automated count (number/volume) 8.2 10*3 SP7.8 Blood lymphocytes automated count (number/volume) 0.7 10*3 SP4.0 Blood monocytes automated count (number/volume) 0. 7 10*3 SP1.0 Automated eosinophil count 0.0 10*3/uL 0 .0-0.3 SP Automated blood basophil count (count/volume) 0.0 10*3/uL SP0.1 Comprehensive metabolic panel - 03/31/19 14:44 POS Serum or plasma sodium measurement (moles/volume) 134 mmol/L SP 135-145 SP Serum or plasma potassium measurement (moles/volume) 3.7 mmol/L SP 3.6-5.0 SP Serum or plasma chloride measurement (moles/volume) 97 mmol/L SP 98-107 SP Carbon dioxide 20 mmol/L 21-32 SP Serum or plasma anion gap determination (moles/volume) 17 mmol/L SP 5-14 SP Serum or plasma urea nitrogen measurement (mass/volume ) 16 mg/dL SP 7-18 SP Serum or plasma creatinine measurement (mass/volume) 0.93 mg/dL SP 0.60-1.30 SP Serum or plasma urea nitrogen/creatinine mass ratio 17 NRG SP Serum or plasma creatinine measurement w ith calculation of estimated glomerular SP rate > NRG SP Serum or plasma glucose measurement (mass/volume) 350 mg/dL SP105 Serum or plasma calcium measurement (mass/volume) 9.1 mg/dL SP10.1 Serum or plasma total bilirubin measurement (mass/volu me) 4.6 mg/dL SP 0.1-1.0 SP Serum or plasma alkaline phosphatase kristi surement (enzymatic activity/volume) SP 137 U/L 40-136 SP Serum or plasma aspartate aminotransfera se measurement (enzymatic SP 24 U/L 5-34 SP Serum or plasma alanine aminotransferase measurement (enzymatic activity/volume) SP 24 U/L 0-55 SP Serum or plasma protein measurement (mass/volume) 7.1 g/dL SP8.2 Serum or plasma albumin measurement (mass/volume) 4.0 g/dL SP4.5 CALCIUM CORRECTED 9.1 mg/dL 8.5-10.1 SP Manual absolute plasma cell count - 1106/18 14:44 POS Blood monocytes/100 leukocytes 5 % NRG SP Manual blood segmented neutrophils/100 leukocytes 58 % NRG SP Blood band neutrophils/100 leukocytes 29 % NRG SP Manual blood lymphocytes/100 leukocytes 6 % NRG SP Blood polychromasia detection by light microscopy SLIGHT SP Manual blood metamyelocytes/100 leukocytes 1 % NRG SP Blood poikilocytosis detection by light microscopy SLIGHT SP Manual blood nucleated erythrocytes/100 leukocytes ratio 1 SP Blood spherocytes detection by light microscopy SL IGHT NRG SP Complete urinalysis with reflex to cultu re - 03/31/19 16:06 POS Urine color determination DARK YELLOW N RG SP Urine clarity determination CLEAR NR G SP Urine pH measurement by test strip 5 5-9 SP Specific gravity of urine by test strip 1.020 1.016-1.022 SP Urine protein assay by test strip, semi-quantitative 2+ SP Urine glucose detection by automated test strip 4+ NEGATIVE SP Erythrocytes detection in urine sediment by light micr oscopy NEGATIVE SP NEGATIVE SP Urine ketones detection by automated test strip 3+ NEGATIVE SP Urine nitrite detection by test strip NEGATIVE NEGATIVE SP Urine total bilirubin detection by test strip NEGA TIVE SP Urine urobilinogen measurement by automated test strip (mass/volume) SP NORMAL SP Urine leukocyte esterase detection by dipstick NEG ATIVE SP Automated urine sediment erythrocyte cou nt by microscopy (number/high power SP NONE NRG SP Automated urine sediment leukocyte count by microscopy (number/high power field) SP NONE NRG SP Bacteria detection in urine sediment by light microsco py NEGATIVE SP NRG SP Squamous epithelial cells detection in u rine sediment by light microscopy SP NONE NRG SP Crystals detection in urine sediment by light microsco py NONE SP NRG SP Casts detection in urine sediment by light microscopy PRESENT SP NRG SP Mucus detection in urine sediment by light microscopy SMALL SP NRG SP Complete urinalysis with reflex to culture NO NRG SP Yeast detection in urine sediment by light microscopy FEW SP Hyaline casts detection in urine sediment by light jazz roscopy 10-25 SP NRG SP Complete blood count (CBC) with automate d white blood cell (WBC) differential - POS 11:25 Blood leukocytes automated count (number/volume) 9.0 10*3/uL POS 4.3-11.0 SP Blood erythrocytes automated count (number/volume) 3.59 10*6/uL SP 4.35-5.85 SP Venous blood hemoglobin measurement (mass/volume) 10.8 g/dL SP16.0 Blood hematocrit (volume fraction) 32 % 35-52 SP Automated erythrocyte mean corpuscular volume 89 [ foz_us] SP99 Automated erythrocyte mean corpuscular h emoglobin (mass per erythrocyte) SP 30 pg 25-34 SP Automated erythrocyte mean corpuscular h emoglobin concentration measurement SP 34 g/dL 32-36 SP Automated erythrocyte distribution width ratio 13. 3 % 10.0- SP Automated blood platelet count (count/volume) 279 10*3/uL SP400 Automated blood platelet mean volume measurement 10.2 [foz_us] SP 7.4-10.4 SP Automated blood neutrophils/100 leukocytes 77 % 42-75 SP Automated blood lymphocytes/100 leukocytes 17 % 12-44 SP Blood monocytes/100 leukocytes 5 % 0-12 SP Automated blood eosinophils/100 leukocytes 1 % 0-10 SP Automated blood basophils/100 leukocytes 0 % 0-10 SP Blood neutrophils automated count (number/volume) 6.9 10*3 SP7.8 Blood lymphocytes automated count (number/volume) 1.5 10*3 SP4.0 Blood monocytes automated count (number/volume) 0. 5 10*3 SP1.0 Automated eosinophil count 0.1 10*3/uL 0 .0-0.3 SP Automated blood basophil count (count/volume) 0.0 10*3/uL SP0.1 Whole blood basic metabolic panel - 11/0 08/16 11:25 POS Serum or plasma sodium measurement (moles/volume) 137 mmol/L SP 135-145 SP Serum or plasma potassium measurement (moles/volume) 4.2 mmol/L SP 3.6-5.0 SP Serum or plasma chloride measurement (moles/volume) 102 mmol/L SP 98-107 SP Carbon dioxide 20 mmol/L 21-32 SP Serum or plasma anion gap determination (moles/volume) 15 mmol/L SP 5-14 SP Serum or plasma urea nitrogen measurement (mass/volume ) 23 mg/dL SP 7-18 SP Serum or plasma creatinine measurement (mass/volume) 0.78 mg/dL SP 0.60-1.30 SP Serum or plasma urea nitrogen/creatinine mass ratio 29 NRG SP Serum or plasma creatinine measurement w ith calculation of estimated glomerular SP rate > NRG SP Serum or plasma glucose measurement (mass/volume) 314 mg/dL SP105 Serum or plasma calcium measurement (mass/volume) 8.6 mg/dL SP10.1 Encounters ACCT No. Visit Date/Time Discharge Status POS Pt. Type Provider Facility Loc./Un it POS Complaint POS [id number] 04/02/2019 10:48:00 019 12:22:00 SP DIS Outpatient WILFREDO ANDERSON APRN [facility] ER COUGH,WEAKNESS SP [id number] 03/31/2019 14:27:00 019 17:10:00 SP DIS Emergency LIVIA LUNSFORD, DEEPTHI Judd [facility] ER NAUSEATED SP [id number] 10/18/2016 06:26:00 017 08:01:00 SP DIS Emergency ELIZA LUNSFORD, PARESH Oro [facility] ER UPPER RESPIRATORY INFECTION SP [id number] 12/29/2015 10:29:00 016 12:03:00 SP DIS Emergency WILFREDO ANDERSON APRN [facility] ER L LOWER SIDE PAIN SP [id number] 06/10/2013 17:17:00 014 17:46:00 SP DIS Emergency DEEPTHI BHAKTA MD [facility] SP
== END 2019-03-31 17:10 | disposition home or self-care (01) ==
LOC: EDUNIT# 14:25 → ER 14:27
DX: J18.1 Lobar pneumonia, unspecified organism (principal); E11.9 Type 2 diabetes mellitus without complications; J45.909 Unspecified asthma, uncomplicated; I10 Essential (primary) hypertension; Z79.4 Long term (current) use of insulin
CPT/HCPCS: 36415; 71046; 80053; 81000; 85007; 85027; 94640; 96374; 96375

== ENCOUNTER 2019-04-02 10:47 | Emergency (ER) | payer OTHER ==
[~2019-04-02] VITALS: Ht 172 cm; Wt 75.0 kg
[~2019-04-02 10:47] MED LIST changes: +CEFD300C3 PO; +ONDA4TAB11 PO; +PROM5SYR PO
[2019-04-02] MEDS ORDERED: HYDROcodone/APAP 5 MG/325 MG (LORTAB) TAB PO ONE (11:30)
[2019-04-02 11:34] LABS: BASOPHILS % (AUTO) 0 % (0-10); EOSINOPHILS # (AUTO) 0.1 10^3/uL (0.0-0.3); EOSINOPHILS % (AUTO) 1 % (0-10); HEMATOCRIT 32 % (35-52); HEMOGLOBIN 10.8 G/DL (11.5-16.0); LYMPHOCYTES # (AUTO) 1.5 X 10^3 (1.0-4.0); LYMPHOCYTES % (AUTO) 17 % (12-44); MEAN CORPUSCULAR HEMOGLOBIN 30 PG (25-34); MEAN CORPUSCULAR HGB CONC 34 G/DL (32-36); MEAN CORPUSCULAR VOLUME 89 FL (80-99); MEAN PLATELET VOLUME 10.2 FL (7.4-10.4); MONOCYTES # (AUTO) 0.5 X 10^3 (0.0-1.0); MONOCYTES % (AUTO) 5 % (0-12); NEUTROPHILS # (AUTO) 6.9 X 10^3 (1.8-7.8); NEUTROPHILS % (AUTO) 77 % (42-75); PLATELET COUNT 279 10^3/uL (130-400); RED CELL DISTRIBUTION WIDTH 13.3 % (10.0-14.5)
[2019-04-02 11:50] LABS: BUN/CREATININE RATIO 29; CALCIUM 8.6 MG/DL (8.5-10.1); CARBON DIOXIDE 20 MMOL/L (21-32); CHLORIDE 102 MMOL/L (98-107); CREATININE SERUM 0.78 MG/DL (0.60-1.30); GFR ESTIMATED > 60; GLUCOSE 314 MG/DL (70-105); POTASSIUM 4.2 MMOL/L (3.6-5.0); SODIUM 137 MMOL/L (135-145)
--- NOTE | 2019-04-02 11:56 | ED Cough/URI ---
General Chief Complaint: Respiratory Problems Stated Complaint: COUGH,WEAKNESS Nursing Triage Note: Patient reports being evaluated here Wednesday and was diagnosed with pneumonia. states has not been sleeping well since. Sepsis Screen: No Definite Risk Source: patient Exam Limitations: no limitations History of Present Illness Date Seen by Provider: Apr 02, 2019 Time Seen by Provider: 11:54 Initial Comments To ER with reports of a bothersome cough that's preventing her from sleeping. She was seen here Wednesday and diagnosed with left lower lobe pneumonia, hasn't been sleeping well since despite the use of promethazine/codeine. She was given IV Rocephin here, Omnicef antibiotics at home she's been able to take these eating and drinking well. She is diabetic. She would like to continue outpatient treatment but is having difficulty with her cough. Timing/Duration: constant Severity/Quality: moderate Associated Symptoms: chest pain/soreness, cough Allergies and Home Medications Allergies Coded Allergies: No Known Drug Allergies (Unverified , 12/29/15) Home Medications Cefdinir 300 Mg Capsule, 300 MG PO BID Prescribed by: DEEPTHI BHAKTA on 03/31/19 165 Codeine Sulfate 30 Mg Tab, 30 MG PO every 4 hours PRN for cough Prescribed by: PARESH KAY on 10/18/16 0758 Dapagliflozin Propanediol 10 Mg Tablet, 10 MG PO DAILY, (Reported) Insulin Glargine,Hum.rec.anlog 300 Unit/1 Ml Insuln.pen, 40-50 UNIT SQ HS, (Reported) Insulin Lispro 100 Unit/1 Ml Vial, 15 UNIT SQ AC, (Reported) Liraglutide 0.6 Mg/0.1 Ml Pen.injctr, 1.2 UNITS SQ DAILY, (Reported) Lisinopril 40 Mg Tablet, 40 MG PO DAILY, (Reported) Ondansetron 4 Mg Tab.rapdis, 4 MG PO Q6H PRN for NAUSEA/VOMITING Prescribed by: DEEPTHI BHAKTA on 03/31/19 165 Pantoprazole Sodium 40 Mg Tablet.dr, 40 MG PO PRN, (Reported) Pantoprazole Sodium 40 Mg Tablet.dr, 40 MG PO DAILY Prescribed by: WILFREDO ANDERSON on 12/29/15 1139 Promethazine HCl/Codeine 5 Ml Syrup, 5 ML PO Q6H Prescribed by: DEEPTHI BHAKTA on 03/31/19 1650 Sucralfate 1 Gm/10 Ml Oral.susp, 1 GM PO ACHS Prescribed by: WILFREDO ANDERSON on 12/29/15 1139 Patient Home Medication List Home Medication List Reviewed: Yes Review of Systems Review of Systems Constitutional: see HPI; No chills, No fever EENTM: see HPI Respiratory: see HPI, cough Cardiovascular: no symptoms reported Genitourinary: no symptoms reported Musculoskeletal: no symptoms reported Skin: no symptoms reported Psychiatric/Neurological: No Symptoms Reported Hematologic/Lymphatic: No Symptoms Reported Immunological/Allergic: no symptoms reported Past Cmjcfvv-Zdwcno-Iacbhd Hx Patient Social History Alcohol Use: Denies Use Recreational Drug Use: No Smoking Status: Never a Smoker Recent Foreign Travel: No Contact w/Someone Who Travel: No Recent Infectious Disease Expo: No Recent Hopitalizations: No Seasonal Allergies Seasonal Allergies: No Past Medical History Surgeries: Yes Gallbladder Respiratory: Yes Asthma Cardiac: Yes Hypertension Neurological: No Genitourinary: No Gastrointestinal: No Musculoskeletal: No Endocrine: Yes Diabetes, Insulin dep HEENT: No Cancer: No Psychosocial: No Integumentary: No Blood Disorders: No Physical Exam Vital Signs - First Documented 04/02/19 11:15 Temp 37.4 Pulse 114 Resp 18 B/P (MAP) 126/77 (93) Pulse Ox 99 O2 Delivery Room Air Capillary Refill : Less Than 3 Seconds Height: 5'5.00" Weight: 220lbs. oz. 99.025227uo; 25.00 BMI Method:Stated General Appearance: WD/WN, no apparent distress Eyes: Bilateral Eye Normal Inspection, Bilateral Eye PERRL, Bilateral Eye EOMI HEENT: PERRL/EOMI, normal ENT inspection Neck: non-tender, full range of motion Respiratory: lungs clear, normal breath sounds, no respiratory distress, no accessory muscle use Cardiovascular: regular rate, rhythm, no murmur Gastrointestinal: normal bowel sounds, non tender, soft Extremities: normal range of motion, non-tender Neurologic/Psychiatric: alert, normal mood/affect, oriented x 3 Skin: normal color, warm/dry Progress/Results/Core Measures Suspected Sepsis Recent Fever Within 48 Hours: No Infection Criteria Present: Documented Infection New/Unexplained Altered Menta: No Sepsis Screen: No Definite Risk SIRS Temperature: Pulse: 114 Respiratory Rate: 18 Laboratory Tests 04/02/19 11:25: White Blood Count 9.0 Blood Pressure 126 /77 Mean: 93 Laboratory Tests 04/02/19 11:25: Creatinine 0.78, Platelet Count 279 Results/Orders Lab Results Laboratory Tests Test 04/02/19 11:25 Range/Units White Blood Count 9.0 4.3-11.0 10^3/uL Red Blood Count 3.59 L 4.35-5.85 10^6/uL Hemoglobin 10.8 L 11.5-16.0 G/DL Hematocrit 32 L 35-52 % Mean Corpuscular Volume 89 80-99 FL Mean Corpuscular Hemoglobin 30 25-34 PG Mean Corpuscular Hemoglobin Concent 34 32-36 G/DL Red Cell Distribution Width 13.3 10.0-14.5 % Platelet Count 279 130-400 10^3/uL Mean Platelet Volume 10.2 7.4-10.4 FL Neutrophils (%) (Auto) 77 H 42-75 % Lymphocytes (%) (Auto) 17 12-44 % Monocytes (%) (Auto) 5 0-12 % Eosinophils (%) (Auto) 1 0-10 % Basophils (%) (Auto) 0 0-10 % Neutrophils # (Auto) 6.9 1.8-7.8 X 10^3 Lymphocytes # (Auto) 1.5 1.0-4.0 X 10^3 Monocytes # (Auto) 0.5 0.0-1.0 X 10^3 Eosinophils # (Auto) 0.1 0.0-0.3 10^3/uL Basophils # (Auto) 0.0 0.0-0.1 10^3/uL Sodium Level 137 135-145 MMOL/L Potassium Level 4.2 3.6-5.0 MMOL/L Chloride Level 102 98-107 MMOL/L Carbon Dioxide Level 20 L 21-32 MMOL/L Anion Gap 15 H 5-14 MMOL/L Blood Urea Nitrogen 23 H 7-18 MG/DL Creatinine 0.78 0.60-1.30 MG/DL Estimat Glomerular Filtration Rate > 60 BUN/Creatinine Ratio 29 Glucose Level 314 H 70-105 MG/DL Calcium Level 8.6 8.5-10.1 MG/DL My Orders Orders - WILFREDO ANDERSON APRN Cbc With Automated Diff (04/02/19 11:17) Basic Metabolic Panel (04/02/19 11:17) Ed Iv/Invasive Line Start (04/02/19 11:17) Chest Pa/Lat (2 View) (04/02/19 11:17) Hydrocodone/Apap 5/325 Tablet (Lortab 5 (04/02/19 11:30) Medications Given in ED Current Medications Medications Dose Ordered Sig/Jovana Route Start Time Stop Time Status Last Admin Dose Admin Acetaminophen/ Hydrocodone Bitart 1.5 tab ONCE ONCE PO 04/02/19 11:30 04/02/19 11:31 DC 04/02/19 11:28 1.5 TAB Vital Signs/I&O 04/02/19 11:15 Temp 37.4 Pulse 114 Resp 18 B/P (MAP) 126/77 (93) Pulse Ox 99 O2 Delivery Room Air Capillary Refill : Less Than 3 Seconds Blood Pressure Mean: 93 POS Diagnostic Imaging Diagonstic Imaging: Xray Plain Films/CT/US/NM/MRI: chest Comments NAME: [facility] REC#: [id number] PT STATUS: REG ER : 1975 PHYSICIAN: WILFREDO ANDERSON RESIDENT CARE MANAGER RN ADMIT DATE: 04/02/19/ER Draft POSDate of Exam:04/02/19 CHEST PA/LAT (2 VIEW) INDICATION: Cough. COMPARISON: 03/31/2019 FINDINGS: Frontal and lateral views of the chest demonstrate persistent but decreased infiltrate in the left posterior lung base. Right lung is clear. The heart is prominent without pulmonary edema. There is no pneumothorax or large effusion. Osseous structures are stable. IMPRESSION: Persistent but decreasing infiltrate left lung base. Dictated on workstation # [id number] Dict: 04/02/19 1150 Trans: 04/02/19 1155 [id number] Interpreted by: JEFFREY DAVALOS Electronically signed by: Departure Impression Primary Impression: Left lower lobe pneumonia Qualified Codes: J18.1 - Lobar pneumonia, unspecified organism Disposition: HOME, SELF-CARE Condition: Stable Departure-Patient Inst. Decision time for Depature: 11:58 Referrals: NO,LOCAL PHYSICIAN (PCP/Family) Primary Care Physician Patient Instructions: Community-Acquired Pneumonia, Adult (DC) Add. Discharge Instructions: 1. Use the hydrocodone as directed for cough. Return to ER for any concerns. All discharge instructions reviewed with patient and/or family. Voiced understanding. Scripts Hydrocodone/Chlorphen P-Stirex (Tussicaps 10 mg-8 mg Capsule) 1 Each Cap.er.12h 1 EACH PO BID PRN for COUGH for 7 Days, #14 CAP Prov: WILFREDO ANDERSON APRN 04/02/19 WILFREDO ANDERSON APRN Apr 02, 2019 11:56 POS
[2019-04-02] MEDS ORDERED: HYDR1CAP15 PO (12:00)
[2019-04-02] MEDS ORDERED: RT-ALBUTEROL/IPRATROPIUM 3 ML (DUONEB) VIAL INH ONE (12:15)
[2019-04-02 12:22] VITALS: BP 126/77
== END 2019-04-02 12:22 | disposition home or self-care (01) ==
LOC: EDUNIT# 10:47 → ER 10:48
DX: J18.1 Lobar pneumonia, unspecified organism (principal); I10 Essential (primary) hypertension; E11.9 Type 2 diabetes mellitus without complications; J45.909 Unspecified asthma, uncomplicated; Z79.4 Long term (current) use of insulin
CPT/HCPCS: 36415; 71046; 80048; 85025

== ENCOUNTER 2020-04-05 12:30 | Emergency (ER) | payer OTHER ==
[~2020-04-05] VITALS: Ht 165 cm; Wt 108.8 kg
[~2020-04-05 12:30] MED LIST changes: +HYDR1CAP15 PO; -PANT40TA3 PO; +PANT40TA52 PO
[2020-04-05] MEDS ORDERED: ONDA8TAB13 PO (12:51)
--- NOTE | 2020-04-05 12:51 | ED General ---
General Chief Complaint: Allergic Reaction Stated Complaint: ALLERGIC REACTION Source of Information: Patient Exam Limitations: No Limitations History of Present Illness Date Seen by Provider: Apr 05, 2020 Time Seen by Provider: 12:47 Initial Comments ER from home with reports of possible allergic reaction. She states that she started a new antidiabetic medication called Rybelsus (Semaglutide (GLP-1 agonist)) 3 days ago and has been vomiting since. 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 She has no hives or shortness of breath. She states that her blood sugars have been totally normal and managed with an insulin pump. Timing/Duration: 2-3 Days Severity: Moderate Associated Systoms: Nausea/Vomiting Allergies and Home Medications Allergies Coded Allergies: No Known Drug Allergies (Unverified , 12/29/15) Home Medications Cefdinir 300 Mg Capsule, 300 MG PO BID Prescribed by: DEEPTHI BHAKTA on 03/31/19 1650 Codeine Sulfate 30 Mg Tab, 30 MG PO every 4 hours PRN for cough Prescribed by: PARESH KAY on 10/18/16 0758 Dapagliflozin Propanediol 10 Mg Tablet, 10 MG PO DAILY, (Reported) Hydrocodone/Chlorphen P-Stirex 1 Each Cap.er.12h, 1 EACH PO BID PRN for COUGH Prescribed by: WILFREDO ANDERSON on 04/02/19 1200 Insulin Glargine,Hum.rec.anlog 300 Unit/1 Ml Insuln.pen, 40-50 UNIT SQ HS, (Reported) Insulin Lispro 100 Unit/1 Ml Vial, 15 UNIT SQ AC, (Reported) Liraglutide 0.6 Mg/0.1 Ml Pen.injctr, 1.2 UNITS SQ DAILY, (Reported) Lisinopril 40 Mg Tablet, 40 MG PO DAILY, (Reported) Ondansetron 4 Mg Tab.rapdis, 4 MG PO Q6H PRN for NAUSEA/VOMITING Prescribed by: DEEPTHI BHAKTA on 03/31/19 1650 Pantoprazole Sodium 40 Mg Tablet.dr, 40 MG PO PRN, (Reported) Pantoprazole Sodium 40 Mg Tablet.dr, 40 MG PO DAILY Prescribed by: WILFREDO ANDERSON on 12/29/15 1139 Promethazine HCl/Codeine 5 Ml Syrup, 5 ML PO Q6H Prescribed by: DEEPTHI BHAKTA on 03/31/19 1650 Sucralfate 1 Gm/10 Ml Oral.susp, 1 GM PO ACHS Prescribed by: WILFREDO ANDERSON on 12/29/15 1139 Patient Home Medication List Home Medication List Reviewed: Yes Review of Systems Review of Systems Constitutional: see HPI EENTM: see HPI Respiratory: no symptoms reported Cardiovascular: no symptoms reported Gastrointestinal: nausea, vomiting Genitourinary: no symptoms reported Musculoskeletal: no symptoms reported Skin: no symptoms reported Psychiatric/Neurological: No Symptoms Reported Past Gnmsmdq-Ivlbnx-Bhszda Hx Patient Social History Recent Foreign Travel: No Contact w/Someone Who Travel: No Recent Hopitalizations: No Seasonal Allergies Seasonal Allergies: No Past Medical History Surgeries: Yes Gallbladder Respiratory: Yes Asthma Cardiac: Yes Hypertension Neurological: No Genitourinary: No Gastrointestinal: No Musculoskeletal: No Endocrine: Yes Diabetes, Insulin dep HEENT: No Cancer: No Psychosocial: No Integumentary: No Blood Disorders: No Physical Exam Vital Signs Capillary Refill : Height, Weight, BMI Height: 5'5.00" Weight: 220lbs. oz. 99.312670xq; 25.00 BMI Method:Stated General Appearance: No Apparent Distress, WD/WN, Other (Alert, very pleasant) Eyes: Bilateral Eye Normal Inspection, Bilateral Eye PERRL, Bilateral Eye EOMI Respiratory: No Accessory Muscle Use, No Respiratory Distress Cardiovascular: Regular Rate, Rhythm, Normal Peripheral Pulses Gastrointestinal: Normal Bowel Sounds, Non Tender, Soft Extremity: Normal Capillary Refill, Normal Inspection Neurologic/Psychiatric: Alert, Oriented x3 Skin: Normal Color, Warm/Dry Progress/Results/Core Measures Suspected Sepsis SIRS Temperature: Pulse: Respiratory Rate: Blood Pressure / Mean: Results/Orders My Orders Orders - WILFREDO ANDERSON APRN Ondansetron Injection (Zofran Injectio (04/05/20 13:00) Normal Saline Bolus 1,000ml (04/05/20 13:00) Cbc With Automated Diff (04/05/20 12:46) Comprehensive Metabolic Panel (04/05/20 12:46) Ua Culture If Indicated (04/05/20 12:46) Ed Iv/Invasive Line Start (04/05/20 12:46) Vital Signs/I&O Capillary Refill : Departure Impression Primary Impression: Medication side effect Additional Impression: Nausea & vomiting Disposition: 01 HOME, SELF-CARE Condition: Stable Departure-Patient Inst. Decision time for Depature: 12:50 Referrals: NO,LOCAL PHYSICIAN (PCP/Family) Primary Care Physician Patient Instructions: Nausea and Vomiting, Adult Add. Discharge Instructions: 1. Nausea medication as directed. Return to ER for any concerns. All discharge instructions reviewed with patient and/or family. Voiced understanding. Scripts Ondansetron (Ondansetron Odt) 8 Mg Tab.rapdis 8 MG PO Q6H PRN for NAUSEA/VOMITING, #10 TAB Prov: WILFREDO ANDERSON APRN 04/05/20 WILFREDO ANDERSON APRN Apr 05, 2020 12:51
[2020-04-05] MEDS ORDERED: ONDANSETRON 4 MG/2 ML (SDV) Z0FRAN IVP ONE (13:00)
[2020-04-05] MEDS ORDERED: NS IV 1000 ML 1,000 ML IV SCH (13:00)
[2020-04-05 13:03] LABS: BILIRUBIN,URINE NEGATIVE (NEGATIVE); CLARITY,URINE SL CLOUDY; COLOR,URINE YELLOW; GLUCOSE, URINE (UA) TRACE (NEGATIVE); KETONES,URINE NEGATIVE (NEGATIVE); LEUKOCYTE ESTERASE ,URINE NEGATIVE (NEGATIVE); NITRITE,URINE NEGATIVE (NEGATIVE); PH,URINE 5.5 (5-9); PROTEIN,URINE 1+ (NEGATIVE)
[2020-04-05 13:25] LABS: BASOPHILS % (AUTO) 0 % (0-10); EOSINOPHILS # (AUTO) 0.1 10^3/uL (0.0-0.3); EOSINOPHILS % (AUTO) 1 % (0-10); HEMATOCRIT 39 % (35-52); HEMOGLOBIN 12.7 g/dL (11.5-16.0); LYMPHOCYTES # (AUTO) 2.3 10^3/uL (1.0-4.0); LYMPHOCYTES % (AUTO) 28 % (12-44); MEAN CORPUSCULAR HEMOGLOBIN 30 pg (25-34); MEAN CORPUSCULAR HGB CONC 33 g/dL (32-36); MEAN CORPUSCULAR VOLUME 92 fL (80-99); MEAN PLATELET VOLUME 10.3 fL (9.0-12.2); MONOCYTES # (AUTO) 0.6 10^3/uL (0.0-1.0); MONOCYTES % (AUTO) 7 % (0-12); NEUTROPHILS # (AUTO) 5.4 10^3/uL (1.8-7.8); NEUTROPHILS % (AUTO) 64 % (42-75); PLATELET COUNT 314 10^3/uL (130-400); WHITE BLOOD COUNT 8.5 10^3/uL (4.3-11.0)
[2020-04-05 13:32] LABS: BACTERIA,URINE TRACE /HPF; WBC,URINE RARE /HPF
[2020-04-05 13:34] LABS: ALBUMIN 4.4 GM/DL (3.2-4.5); CHLORIDE 108 MMOL/L (98-107); SODIUM 139 MMOL/L (135-145)
[2020-04-05 13:36] LABS: CALCIUM 8.8 MG/DL (8.5-10.1)
[2020-04-05 13:37] LABS: GLUCOSE 204 MG/DL (70-105); TOTAL PROTEIN 7.4 GM/DL (6.4-8.2)
[2020-04-05 13:38] LABS: CARBON DIOXIDE 19 MMOL/L (21-32)
[2020-04-05 13:39] LABS: BILIRUBIN,TOTAL 2.1 MG/DL (0.1-1.0)
[2020-04-05 13:40] LABS: ALKALINE PHOSPHATASE 100 U/L (40-136); CREATININE SERUM 0.77 MG/DL (0.60-1.30); GFR ESTIMATED > 60
[2020-04-05 13:41] LABS: BUN/CREATININE RATIO 26
[2020-04-05 13:43] LABS: ALANINE AMINOTRANSFERASE 27 U/L (0-55)
[2020-04-05 14:23] VITALS: BP 126/71
== END 2020-04-05 14:23 | disposition home or self-care (01) ==
LOC: EDUNIT# 12:30 → ER 12:32
DX: R11.2 Nausea with vomiting, unspecified (principal); I10 Essential (primary) hypertension; E11.9 Type 2 diabetes mellitus without complications; Z79.4 Long term (current) use of insulin
CPT/HCPCS: 36415; 80053; 81000; 85025